=== PATIENT | female | born 1965 | race Two or more races ===

== ENCOUNTER 2019-09-14 07:46 | Day surgery (SDC) | payer OTHER ==
[2019-09-14] VITALS (9 sets, daily range): BP systolic 122–138; BP diastolic 51–75
[~2019-09-14] VITALS: Ht 167.6 cm; Wt 117.9 kg
[~2019-09-14 07:46] MED LIST: LR 1000ml 1,000 ML IVLG SCH
--- NOTE | 2019-09-14 08:06 | Short Stay Surgery H&P ---
History of Present Illness History of Present Illness Chief Complaint Abdominal pain/GERDs HPI Mirtha Pruitt is a 54 year old female who was admitted on for GERD/ abdominal pain Patient History Allergies: Coded Allergies: No Known Allergies (Unverified , 09/13/19) PAST MEDICAL HISTORY: (1) H/O tubal ligation (2) Hx of tonsillectomy (3) History of shoulder surgery (4) Hypertension (5) Migraine (6) History of skin cancer Review of Systems Cardiovascular: Reports: no symptoms Respiratory: Reports: no symptoms Skeletal: Reports: trauma Gastrointestinal: Reports: gastro esophageal reflux disease Genitourinary: Reports: no symptoms Neurologic: Reports: no symptoms Hematologic: Reports: no symptoms Physical Exam Skin: normal Heart: normal Lungs: normal Abdomen: abnormal Extremities: normal Genitourinary: normal Plan Plan of Care Upper GI endoscopy and biopsy Preop Interventions None Summary of Findings See the reports Attestation Are the patient's medical conditions optimized for surgery? Attestation Response: yes Amy Hassan MD Sep 14, 2019 08:05
--- NOTE | 2019-09-14 08:07 | Pre-Procedure Note/Attestation ---
Pre-Procedure Note/Attestation Complete Prior to Procedure Planned Procedure: left Procedure Narrative: Examination of the upper GI tract via endoscopy. Indications for Procedure Pre-Operative Diagnosis: R/O Peptic Ulcer/Gastritis/esophagitis Attestation I attest that I discussed the nature of the procedure; its benefits; risks and complications; and alternatives (and the risks and benefits of such alternatives ), prior to the procedure, with the patient (or the patient's legal group sales representative). I attest that, if there was a reasonable possibility of needing a blood transfusion, the patient (or the patient's legal group sales representative) was given the [place] [employer] standardized written summary, pursuant to the Jethro Bernardo Blood Safety Act ([place] Health and Safety Code # 1645, as amended). I attest that I re-evaluated the patient just prior to the surgery and that there has been no change in the patient's H&P, except as documented below: Amy Hassan MD Sep 14, 2019 08:07
[2019-09-14] MEDS ORDERED: Lidocaine 1% Plain 30 ml INJ ONE (08:12)
[2019-09-14] MEDS ORDERED: LOSARTAN POTASS50 MG ORAL (08:20)
[2019-09-14] MEDS ORDERED: OMEPRAZOLE20 M2 ORAL (08:20)
[2019-09-14] MEDS ORDERED: HYDROCHLOROTH12.5 MG ORAL (08:20)
[2019-09-14] MEDS ORDERED: Propofol 200mg/20ml IV ONE (08:30)
[2019-09-14] MEDS ORDERED: LR 1000ml ONE (08:30)
[2019-09-14] MEDS ORDERED: LR 1000ml 1,000 ML IVLG SCH (08:32)
--- NOTE | 2019-09-14 08:39 | Anethesia Preoperative Eval ---
Anesthesia Pre-op PMH/ROS General Date of Evaluation: Sep 14, 2019 Time of Evaluation: 08:21 Anesthesiologist: Rachid ASA Score: ASA 3 Mallampati Score Class I : Soft palate, uvula, fauces, pillars visible Class II: Soft palate, uvula, fauces visible Class III: Soft palate, base of uvula visible Class IV: Only hard plate visible Mallampati Classification: Class II Surgeon: Mo Diagnosis: Abd Pain Surgical Procedure: EGD Anesthesia History: none Family History: no anesthesia problems Allergies: Coded Allergies: No Known Allergies (Unverified , 09/13/19) Medications: see eMAR Patient NPO?: Yes Past Medical History Cardiovascular: Reports: HTN Gastrointestinal/Genitourinary: Reports: GERD - Hiatal Hernia, other Other: obesity - Morbid BMI 43 Anesthesia Pre-op Phys. Exam Physician Exam Last Vital Signs Date Time Temp Pulse Resp B/P (MAP) Pulse Ox O2 Delivery O2 Flow Rate FiO2 09/14/19 08:25 Room Air 09/14/19 08:24 97.2 68 18 129/69 98 Constitutional: NAD Neurologic: CN 2-12 intact Cardiovascular: RRR Respiratory: CTA Gastrointestinal: S/NT/ND Airway Exam Mallampati Score: Class II MO: full ROM: limited Teeth: missing, intact Anesthesia Pre-op A/P Risk Assessment & Plan Assessment: ASA 3 Plan: TIVA Status Change Before Surgery: Rafa Vega MD Sep 14, 2019 08:39
[2019-09-14] MEDS ORDERED: fentaNYL 100 mcg/2 mL IV PRN (08:45)
[2019-09-14] MEDS ORDERED: Meperidine 25mg/0.5ml Inj (FOR RIGORS ONLY) IV PRN (08:45)
[2019-09-14] MEDS ORDERED: Metoclopramide 10mg/2ml Inj IVP PRN (08:45)
[2019-09-14] MEDS ORDERED: Ketorolac 30mg Inj IV PRN ×2 (08:45)
[2019-09-14] MEDS ORDERED: Atropine Sulfate 0.4mg/ml inj IVP PRN (08:45)
[2019-09-14] MEDS ORDERED: HYDROcodone/Acetamin 5/325 tab ORAL PRN (08:45)
[2019-09-14] MEDS ORDERED: Midazolam 2mg/2ml Inj IVP PRN (08:45)
[2019-09-14] MEDS ORDERED: LORazepam Inj 2mg/ml 1ml IV PRN (08:45)
[2019-09-14] MEDS ORDERED: HYDROcodone/Acetamin 7.5/325 tab ORAL PRN (08:45)
[2019-09-14] MEDS ORDERED: DiphenhydrAMINE 50mg/ml Inj IVP PRN (08:45)
[2019-09-14] MEDS ORDERED: Labetalol 5mg/ml 20ml vial IV PRN (08:45)
[2019-09-14] MEDS ORDERED: Hydromorphone 0.5mg/0.5ml inj IVP PRN (08:45)
[2019-09-14] MEDS ORDERED: oxyCODONE HCL/Acetaminophen 5/325mg ORAL PRN (08:45)
--- NOTE | 2019-09-14 08:52 | Immediate Post-Op Evaluation ---
Immediate Post-Op Evalulation Immediate Post-Op Evalulation Procedure: EGD Date of Evaluation: Sep 14, 2019 Time of Evaluation: 09:18 IV Fluids: 400 LR Blood Products: 0 Estimated Blood Loss: 2 Urinary Output: 0 Blood Pressure Systolic: 133 Blood Pressure Diastolic: 56 Pulse Rate: 78 Respiratory Rate: 16 O2 Sat by Pulse Oximetry: 100 Temperature (Fahrenheit): 97 Pain Score (1-10): 2 Nausea: No Vomiting: No Complications 0 Patient Status: awake, reacts, patent, none Hydration Status: adequate Rafa Rashid MD Sep 14, 2019 08:52
--- NOTE | 2019-09-14 08:53 | Endoscopy Procedure Note ---
Endoscopy Procedure Note General Indication for Procedure: Abdominal pains/GERDS Procedures Performed: EGD - Small Hiatal Hernia and numerous gastric polyps ( fundic type) found, biopsy from a polyp and gastric body was done per random/no gastritis or ulcer noted. Specimen: yes Pt Tolerated Procedure Well: Yes Estimated Blood Loss: none Anesthesia Anesthesiologist: Dr. Rashid Anesthesia: moderate sedation Medications Medication Given: see anesthesia record Inserted Devices Implant(s) used?: No Quality Quality of Bowel Preparation: Excellent Was there any complications?: No GI Core Measures 50 yrs or older w/o bx or poly: Not Applicable 10yrs. F/U recommended: Not Applicable If not recommended, why?: Med reason:<3 yrs.: System Reason:<3 yrs.: Last colonoscopy >= to 3yrs: No Amy Hassan MD Sep 14, 2019 08:53
--- NOTE | 2019-09-14 08:54 | Discharge Instructions ---
Discharge Instructions Discharge Instructions Follow up with: No need to follow with Dr. Hassan. Reports will be sent to Dr. Dodge For Congestive Heart Failure Reminder Report to your physician any weight gain of 5 pounds or more in one week. Amy Hassan MD Sep 14, 2019 08:54
--- NOTE | 2019-09-14 08:54 | 48 Hour Post Anesthesia Eval ---
Post Anesthesia Evaluation Procedure: EGD Date of Evaluation: Sep 14, 2019 Time of Evaluation: 11:23 Blood Pressure Systolic: 129 0: 57 Pulse Rate: 73 Respiratory Rate: 18 Temperature (Fahrenheit): 98.2 O2 Sat by Pulse Oximetry: 99 Airway: patent Nausea: No Vomiting: No Pain Intensity: 2 Hydration Status: adequate Cardiopulmonary Status: Stable Mental Status/LOC: patient returned to baseline Follow-up Care/Observations: 0 Post-Anesthesia Complications: 0 Follow-up care needed: ready to discharge Rafa Rashid MD Sep 14, 2019 08:54
--- NOTE | 2019-09-14 15:15 | Operative Note - Dictated ---
DATE OF OPERATION: 09/14/2019 SURGEON: Amy Hassan M.D. PROCEDURE: Esophagogastroduodenoscopy with biopsy. PREOPERATIVE DIAGNOSIS: Abdominal pain and history of gastroesophageal reflux, rule out peptic ulcer disease secondary to NSAID use. POSTOPERATIVE DIAGNOSES: 1. Small hiatal hernia. 2. Numerous fundic-type hyperplastic polypoid lesions over the stomach, one of them was randomly biopsied. 3. Biopsy was done per random from gastric body. No evidence of peptic ulcer disease was noted. No gastritis. MEDICATION USED: Per Dr. Rashid. INSTRUMENT: GIF Olympus upper GI video endoscope. DESCRIPTION OF PROCEDURE: The patient after arriving in endoscopy unit, was told about risks and benefits of the procedure, which she accepted and signed informed consent. At this time, she was put on the left lateral decubitus position. After adequate IV sedation, the scope was gently passed through the cricopharyngeal area, was lodged into the upper esophagus and gradually advanced towards gastroesophageal junction. The entire length of the esophagus looked normal. No evidence of inflammatory process, ulceration, stricture, etc. was found. At this time, the scope was gradually advanced towards gastroesophageal junction whereby after the passage of the scope, it was revealed that there was evidence of a small hiatal hernia, but there was no any Templeton's or ulcerations. There was no stricture. At this time, the scope was gradually advanced into the stomach. Gastric cavity was distended with insufflation of air. This revealed evidence of numerous small 1 to 2 mm soft hyperplastic polypoid lesions consistent with fundic type polyps all over the stomach, but mostly in the upper part and mid gastric area. They looked benign and one of them was randomly biopsied. There was also one biopsy done from gastric body. There was, however, no evidence of ulcerations, gastritis, tumors, etc. The scope was then gradually advanced towards the mid body and the antrum and from there into pylorus and first and second portion of duodenum were found to be completely normal. At this point, the scope was pulled back into the stomach. A retroflexion maneuver was applied and the area of the gastroesophageal junction was examined in a closer fashion, which revealed normal findings. Finally, the procedure was terminated. The patient tolerated the procedure well and left the endoscopy room in a good condition. Said Marty Hassan DR: SANA JOB#: [id number] CC:
--- NOTE | 2019-09-14 15:15 | Pre-op HX & Phy Repo 2 SIG ---
DATE OF ADMISSION: 09/14/2019 HISTORY OF PRESENT ILLNESS: The patient is a 54-year-old female who is being seen prior to undergoing the procedure of upper GI endoscopy for which she has been scheduled to receive for evaluation of her gastrointestinal conditions that she has suffered during the process of work at job site. The patient reports that she has been experiencing severe intermittent pain over the upper and sometime lower abdominal area. The pain also radiates towards the chest at this time. This is also associated with experiencing moderate heartburn, particularly this condition is aggravated by consumption of spicy foods. She denies having any nausea, vomiting, hematemesis, or melena. There has been no any major dysphagia or odynophagia etc. She reports that in the past, she has been treated with Prilosec and recently was also prescribed to receive these medications for this condition that she is currently taking. She reports that the appetite is normal and she has been gaining significant amount of weight. 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 There is no history of diarrhea or constipation at this point in time. She denies having had any history of gastritis, peptic ulcer disease, Helicobacter infection etc. Basically, she has been followed by her primary care physicians at [facility] and it seems she has been followed by this group of physicians for hypertension and prior history of chronic gastroesophageal acid reflux. PAST MEDICAL HISTORY: The patient has had multiple conditions including hypertension and history of skin cancer. SURGERIES: The applicant has had history of shoulder surgery, tonsillectomy, and tubal ligation. ALLERGIES: To penicillin. HABITS: She denies drinking alcohol or smoking cigarettes. FAMILY HISTORY: Mother has and there is no family diathesis. REVIEW OF SYSTEMS: Basically history of present illness as mentioned. PHYSICAL EXAMINATION: GENERAL: Reveals alert, well oriented, very pleasant female, who looks excessively obese consistent with morbid obesity. VITAL SIGNS: Temperature 97.2, pulse rate 68 per minute, respirations 18 per minute, blood pressure 129/69, oxygen saturation 98% on room air. HEENT: Normocephalic. Pupils are equal in size and reactive to light and accommodation. No visible jaundice. Buccal cavity, tongue midline, well hydrated. No evidence of ulcers or inflammatory process. NECK: Supple. No JVD or thyromegaly. CHEST: Clear to auscultation and percussion. No rales or rhonchi. HEART: S1, S2 normal. Regular rate and rhythm. No gallops or murmur. ABDOMEN: Excessively obese. There is no hepatosplenomegaly, but there are areas of tenderness over the epigastric area and generalized over the lower abdomen with a lesser degree. There is no rebound phenomenon. Bowel sounds are adequately present. EXTREMITIES: Within normal limits. No pretibial edema, cyanosis, or clubbing. CENTRAL NERVOUS SYSTEM: Grossly normal. INITIAL PREOPERATIVE DIAGNOSES: 1. Chronic abdominal pain, epigastric pain consistent with gastroesophageal acid reflux, rule out NSAID-induced gastropathy such as peptic ulcer disease, esophagitis, gastritis etc. 2. Hypertension and morbid obesity. 3. History of work-related bodily injuries orthopedic diagnosis. 4. Skin cancer history. RECOMMENDATIONS: At this time, the applicant seems to be quite stable to undergo the procedure of upper GI endoscopy for which she has been scheduled. She understands the risks and benefits and will sign the consent. Said Marty Hassan DR: ALFONSO JOB#: [id number] CC: VALERY
== END 2019-09-14 10:20 | disposition home or self-care (01) ==
LOC: GAS 07:46
DX: R10.9 Unspecified abdominal pain (principal); K21.9 Gastro-esophageal reflux disease without esophagitis; K44.9 Diaphragmatic hernia without obstruction or gangrene; K31.7 Polyp of stomach and duodenum; I10 Essential (primary) hypertension; Z85.828 Personal history of other malignant neoplasm of skin; Z85.41 Personal history of malignant neoplasm of cervix uteri; Z88.0 Allergy status to penicillin; E66.01 Morbid (severe) obesity due to excess calories; Z68.41 Body mass index [BMI] 40.0-44.9, adult; K29.50 Unspecified chronic gastritis without bleeding
CPT/HCPCS: 43239; J2001; J2250; J2704; J7120; 94003; 94150